=== PATIENT | female | born 1935 | race Caucasian/White ===

== ENCOUNTER 2017-04-26 15:05 | Inpatient (IN) ==
[2017-04-26] MEDS ORDERED: *HR* Warfarin 5 MG TABLET PO SCH (17:15)
[2017-04-26] MEDS ORDERED: Insulin DETEMIR 100 UNIT/ML per UNIT SQ ONE (18:00)
[2017-04-26] MEDS ORDERED: Insulin DETEMIR 100 UNIT/ML X5UNITS SQ SCH (18:00)
[2017-04-26] MEDS: Acetaminophen 325 MG TABLET PO PRN (18:12)
[2017-04-26] MEDS: hydrALAZINE 25 MG TABLET PO SCH (22:42)
[2017-04-26] MEDS: Gabapentin 300 MG CAPSULE PO SCH (22:43)
[2017-04-27 05:58] LABS: Basophils % 0.5 %; Eosinophils # 0.1 K/mcL (0.0-0.6); Eosinophils % 2.2 %; Immature Granulocytes % 0.8 % (0-4); Lymphocytes # 1.3 K/mcL (0.6-4.6); Lymphocytes % 19.5 %; Mean Corpuscular HGB Conc 33.3 g/dL (31.6-35.5); Mean Corpuscular Hemoglobin 31.3 pg (28.0-33.3); Mean Corpuscular Volume 93.8 fL (83.0-100.0); Mean Platelet Volume 11.4 fL (9.4-12.4); Monocytes # 1.9 K/mcL (0.0-1.3); Monocytes % 30.3 %; Platelet Count 193 K/mcL (140-400); Red Cell Distribution Width 15.7 % (11.5-14.5); Segmented Neutrophils % 46.7 %
[2017-04-27 06:02] LABS: INR 1.8; Prothrombin Time 19.6 Seconds (9.4-12.1)
[2017-04-27 06:03] LABS: Activated Partial Thrombo Time 35.8 Seconds (26.0-36.0)
[2017-04-27 06:09] LABS: Calcium 11.1 mg/dL (8.6-10.8); Potassium 3.8 mEq/L (3.5-4.5)
[2017-04-27] MEDS: Isosorbide MONOnitrate (24 HR) 30 MG TAB.ER.24H PO SCH (09:50)
[2017-04-27] MEDS: Cefdinir 300 MG CAPSULE PO SCH (09:50)
[2017-04-27] MEDS: Aspirin Enteric Coated 81 MG Tablet PO SCH (09:50)
[2017-04-27] MEDS: hydroCHLOROthiazide 25 MG TABLET PO SCH (09:51)
[2017-04-27] MEDS: Gabapentin 300 MG CAPSULE PO SCH ×3 (09:51→22:36)
[2017-04-27] MEDS: hydrALAZINE 25 MG TABLET PO SCH ×3 (09:52→22:36)
[2017-04-27] MEDS: amLODIPine 5 MG TABLET PO SCH (09:52)
--- NOTE | 2017-04-27 13:04 | Internal Med History&Physical ---
Date of Encounter: 04/27/17 Time of Encounter: 12:45 Assessment and Plan (1) Constipation Current visit: Yes Status: Acute Will schedule Colace for now. Qualifiers: Constipation type: unspecified constipation type Qualified Code(s): K59.00 - Constipation, unspecified (2) Physical deconditioning Current visit: Yes Status: Acute PT, OT, ST, and RT consulted; appreciate input. (3) BAN (acute kidney injury) Current visit: No Status: Acute Cr 3.11 today, will recheck BMP tomorrow morning. (4) Essential hypertension Current visit: No Status: Chronic Continue current regimen, will consider going up on either HCTZ or hydralazine. (5) UTI (urinary tract infection) Current visit: No Status: Acute Continue Omnicef for a total of 5d here. Qualifiers: Urinary tract infection type: acute cystitis Hematuria presence: without hematuria Qualified Code(s): N30.00 - Acute cystitis without hematuria (6) Normocytic anemia Current visit: Yes Status: Acute No indication for transfusion at this particular moment. Will repeat CBC/d tomorrow morning. (7) Subtherapeutic international normalized ratio (INR) Current visit: Yes Status: Acute Pharmacy consulted; appreciate rec(s) on warfarin dosing. (8) Diabetes mellitus Current visit: No Status: Resolved Sugar overall controlled, continue current regimen. Qualifiers: Diabetes mellitus type: type 2 Diabetes mellitus complication status: with unspecified complications Diabetes mellitus superintendent terminal insulin use: with detention use Qualified Code(s): E11.8 - Type 2 diabetes mellitus with unspecified complications; Z79.4 - prison (current) use of insulin Internal Medicine - H&P: HPI Chief complaint: Physical deconditioning Admitted From: Hospital to Hospital Transfer Plans for Post Hospital Care: Transfer Inp Rehab Fac History of present illness: Ms. Trevizo is a 82 year old female w/a PMH significant for CHF, CAD, a fib on Coumadin, DM, and CKD5 who has been transferred to our facility from [facility] due to physical deconditioning needing rehab. Per discharge summary, patient presented with falls + confusion and was found to be bradycardic and also a UTI. Per discharge summary, cardiac meds were adjusted based on cardiology's input (metoprolol and Lasic discontinued, HCTZ started). Per discharge summary, patient will need to complete 5 more days of Omnicef while here. Finally, per discharge summary, patient will need to f/u with nephrology in 2 weeks for BAN on CKD diagnosed during this hospitalization. At the time of this encounter, the patient feels overall okay and is looking forward to working with our therapists. Patient does report a bit of constipation. In addition, although the patient has been able to move around, she gets really short of breath easily. Finally, on the way here yesterday, the patient did feel a little bit nauseated, but did not vomit and this feeling was self-limited. Patient reports no fever, chills, CP, dysuria, seizure, tremor, skin rash, bruising out of the ordinary, or bleeding symptoms. Past Med Surg Social Fam HX - Past Medical History Medical history: arthritis, atrial fibrillation, CHF, diabetes, hyperlipidemia, hypertension, renal disease Psychiatric history: no psych history - Past Surgical History Surgical History: cholecystectomy, orthopedic, other, NICHOLAS/BSO - Social History Smoking Status: Never smoker Smokeless Tobacco Status: No Alcohol use: none Drug use: none - Family History Mother Living Status: Hx Family Cardiac Disorders: Yes Hx Family Cancer: Yes (Skin) Hx Family Endocrine Disorder: Yes (diabetes) Father Adopted: No Family Member Ethnicity: Non- Living Status: Hx Family Cardiac Disorders: Yes Hx Family Endocrine Disorder: Yes (diabetes) Internal Medicine - H&P: Meds Amlodipine Besylate 10 mg PO DAILY 01/24/16 [History] DULoxetine [Cymbalta] 30 mg PO DAILY 01/24/16 [History] Esomeprazole Magnesium [Nexium] 40 mg PO DAILY 01/24/16 [History] Gabapentin [Neurontin] 300 mg PO TID 01/24/16 [History] Hydralazine HCl 50 mg PO TID 01/24/16 [History] Insulin Glargine,Hum.rec.anlog [Lantus Solostar] 18 unit SQ QPM 01/24/16 [ History] Acetaminophen [Tylenol] 650 mg PO Q6HR PRN #0 tablet 02/01/16 [Rx] Aspirin Enteric Coated [Aspirin EC] 81 mg PO DAILY tablet. 02/01/16 [Rx] Docusate [Colace] 100 mg PO BID PRN #0 capsule 02/01/16 [Rx] Isosorbide MONOnitrate (24 HR) [Imdur] 30 mg PO DAILY 04/23/17 [History] Warfarin [Coumadin] 5 mg PO SUMOWETHFR 04/23/17 [History] Warfarin perPT [Coumadin perPT] 5.5 mg PO TUTHSA 04/23/17 [History] Cefdinir [Omnicef] 300 mg PO DAILY 5 Days #5 capsule 04/26/17 [Rx] hydroCHLOROthiazide [Hydrochlorothiazide] 25 mg PO DAILY #14 tablet 04/26/17 [Rx ] 3 Allergy/AdvReac Type Severity Reaction Status Date / Time cephalexin [From Keflex] AdvReac Unknown Hypotension Verified 01/24/16 21:49 codeine AdvReac Hypotension Verified 01/24/16 21:49 lisinopril AdvReac See Verified 01/24/16 21:49 Comments metoprolol AdvReac See Verified 01/24/16 21:49 Comments All Systems PM: A 10-system review of systems was performed and is negative for pertinent findings except as documented above in the HPI. Review of systems: 10-point ROS performed and (-) other than mentioned per HPI. - Constitutional Vitals: Temp Pulse Resp BP Pulse Ox 98.1 F 72 16 160/57 94 04/27/17 07:25 04/27/17 07:25 04/27/17 07:25 04/27/17 07:25 04/27/17 07:25 Exam: Gen: A&Ox3, NAD. HEENT: NCAT. Neck: No palpable lymphadenopathy or thyromegaly. CV: RRR, S1S2. No murmur. Pulm: CTAB. Abd: (+)BS. NDNT. Neuro: Global weakness, otherwise non-focal. Skin: No rash. Ext: No pitting edema. Internal Med - H&P Results - Labs CBC & Chem 7: 04/27/17 05:00 04/27/17 05:00 Labs: Short CBC 04/27/17 Range/Units 05:00 WBC 6.4 (4.3-11.1) K/mcL Hgb 10.0 L (11.5-15.4) g/dL Hct 30.0 L (35.3-44.9) % Plt Count 193 (140-400) K/mcL Neutrophils # 3.0 (1.6-8.9) K/mcL BMP 04/27/17 05:00 Sodium 144 Potassium 3.8 Chloride 110 H Carbon Dioxide 22 BUN 44 H Creatinine 3.11 H Glucose 81 Calcium 11.1 H
[2017-04-27] MEDS: Warfarin perPT PO SCH (17:47)
[2017-04-27] MEDS ORDERED: *HR* Warfarin 3 MG TABLET PO SCH (18:00)
[2017-04-27] MEDS ORDERED: *HR* Warfarin 2.5 MG TABLET PO SCH (18:00)
[2017-04-27] MEDS: Insulin DETEMIR 100 UNIT/ML X5UNITS SQ SCH (18:38)
[2017-04-28 05:16] LABS: Basophils % 0.4 %; Eosinophils # 0.1 K/mcL (0.0-0.6); Eosinophils % 2.3 %; Hematocrit 29.1 % (35.3-44.9); Hemoglobin 9.7 g/dL (11.5-15.4); Immature Granulocytes % 0.8 % (0-4); Lymphocytes # 1.1 K/mcL (0.6-4.6); Lymphocytes % 20.1 %; Mean Corpuscular HGB Conc 33.3 g/dL (31.6-35.5); Mean Corpuscular Hemoglobin 31.2 pg (28.0-33.3); Mean Corpuscular Volume 93.6 fL (83.0-100.0); Mean Platelet Volume 11.1 fL (9.4-12.4); Monocytes # 1.3 K/mcL (0.0-1.3); Monocytes % 25.4 %; Neutrophils # 2.7 K/mcL (1.6-8.9); Platelet Count 181 K/mcL (140-400); Red Blood Count 3.11 M/mcL (3.82-4.97); Red Cell Distribution Width 15.6 % (11.5-14.5)
[2017-04-28 05:22] LABS: INR 1.8; Prothrombin Time 19.5 Seconds (9.4-12.1)
[2017-04-28 05:31] LABS: Platelet Estimate Normal (Normal)
[2017-04-28 05:35] LABS: Albumin 2.7 g/dL (3.5-5.0); Albumin/Globulin Ratio 0.8 (1.1-2.2); Bilirubin,Total 0.4 mg/dL (0.2-1.2); Calcium 11.1 mg/dL (8.6-10.8); Globulin 3.4 g/dL (2.4-3.5); Potassium 4.2 mEq/L (3.5-4.5); Total Protein 6.1 g/dL (6.0-8.3)
[2017-04-28] MEDS: Cefdinir 300 MG CAPSULE PO SCH (08:28)
[2017-04-28] MEDS: hydrALAZINE 25 MG TABLET PO SCH ×3 (08:28→23:34)
[2017-04-28] MEDS: Isosorbide MONOnitrate (24 HR) 30 MG TAB.ER.24H PO SCH (08:28)
[2017-04-28] MEDS: Gabapentin 300 MG CAPSULE PO SCH ×3 (08:28→20:46)
[2017-04-28] MEDS: Aspirin Enteric Coated 81 MG Tablet PO SCH (08:29)
[2017-04-28] MEDS: amLODIPine 5 MG TABLET PO SCH (08:29)
[2017-04-28] MEDS: hydroCHLOROthiazide 25 MG TABLET PO SCH (08:29)
--- NOTE | 2017-04-28 12:08 | Internal Med Progress Note ---
Date of Encounter: 04/28/17 Time of Encounter: 12:05 - Assessment and plan (1) Constipation Current Visit: Yes Status: Resolved Assessment and plan: Will make Colace PRN now. Qualifiers: Constipation type: unspecified constipation type Qualified Code(s): K59.00 - Constipation, unspecified (2) Physical deconditioning Current Visit: Yes Status: Acute Assessment and plan: PT, OT, ST, and RT consulted; appreciate input. (3) BAN (acute kidney injury) Current Visit: No Status: Acute Assessment and plan: - Cr overall stabe at 3.2 today. Will recheck BMP tomorrow. - Encourage PO. (4) Essential hypertension Current Visit: No Status: Chronic Assessment and plan: - Will increase hydralazine to 50mg q6h. - Continue HCTZ and amlodipine. (5) UTI (urinary tract infection) Current Visit: No Status: Acute Assessment and plan: Continue Omnicef for a total of 5d here. Qualifiers: Urinary tract infection type: acute cystitis Hematuria presence: without hematuria Qualified Code(s): N30.00 - Acute cystitis without hematuria (6) Normocytic anemia Current Visit: Yes Status: Chronic Assessment and plan: - Stable, no indication for transfusion at this moment. - Continue to monitor as clinically indicated. (7) Subtherapeutic international normalized ratio (INR) Current Visit: Yes Status: Acute Assessment and plan: Warfarin dosing per pharmacy. (8) Diabetes mellitus Current Visit: No Status: Resolved Assessment and plan: Sugar overall well controlled; continue current insulin regimen. Qualifiers: Diabetes mellitus type: type 2 Diabetes mellitus complication status: with unspecified complications Diabetes mellitus care home insulin use: with care home use Qualified Code(s): E11.8 - Type 2 diabetes mellitus with unspecified complications; Z79.4 - longterm (current) use of insulin - Time Spent With Patient 25 - 35 minutes - Subjective Interval history: - Feeling "better." - States that hypertension has been a very chronic problem. - Had a BM. - Constitutional Vitals: Temp Pulse Resp BP Pulse Ox 97.4 F L 69 15 169/69 91 04/28/17 07:00 04/28/17 07:00 04/28/17 07:00 04/28/17 07:00 04/28/17 07:00 Exam: Gen: A&Ox3, NAD. HEENT: NCAT. Neck: No palpable lymphadenopathy or thyromegaly. CV: RRR, S1S2. No murmur. Pulm: CTAB. Abd: (+)BS. NDNT. Neuro: Global weakness, otherwise non-focal. Skin: No rash. Ext: No pitting edema. Internal Medicine: Result - Labs CBC & Chem 7: 04/28/17 05:00 04/28/17 05:00 Labs: Short CBC 04/28/17 Range/Units 05:00 WBC 5.3 (4.3-11.1) K/mcL Hgb 9.7 L (11.5-15.4) g/dL Hct 29.1 L (35.3-44.9) % Plt Count 181 (140-400) K/mcL Neutrophils # 2.7 (1.6-8.9) K/mcL BMP 04/28/17 05:00 Sodium 141 Potassium 4.2 Chloride 109 Carbon Dioxide 21 BUN 43 H Creatinine 3.20 H Glucose 116 H Calcium 11.1 H Liver Function 04/28/17 Range/Units 05:00 Total Bilirubin 0.4 (0.2-1.2) mg/dL AST 17 (5-34) Units/L ALT 27 (0-55) Units/L Alkaline Phosphatase 92 (38-126) Units/L Albumin 2.7 L (3.5-5.0) g/dL - ABG Interpretation ABG results: PT/INR, D-dimer PT 19.5 Seconds (9.4-12.1) H 04/28/17 05:00 Consult Discharge Plan - Plan Referrals: Alicia Johnson VULCANIZING PRESS OPERATOR [Primary Care Provider] -
[2017-04-28] MEDS ORDERED: *HR* Warfarin 3 MG TABLET PO ONE (18:00)
[2017-04-28] MEDS: Warfarin perPT PO SCH (18:49)
[2017-04-28] MEDS: Insulin DETEMIR 100 UNIT/ML X5UNITS SQ SCH (18:51)
[2017-04-29] MEDS: hydrALAZINE 25 MG TABLET PO SCH ×4 (05:07→22:01)
[2017-04-29 06:05] LABS: Basophils % 0.3 %; Eosinophils # 0.2 K/mcL (0.0-0.6); Eosinophils % 2.6 %; Hematocrit 28.8 % (35.3-44.9); Hemoglobin 9.6 g/dL (11.5-15.4); Lymphocytes # 1.5 K/mcL (0.6-4.6); Lymphocytes % 25.3 %; Mean Corpuscular HGB Conc 33.3 g/dL (31.6-35.5); Mean Corpuscular Hemoglobin 31.5 pg (28.0-33.3); Mean Corpuscular Volume 94.4 fL (83.0-100.0); Mean Platelet Volume 11.8 fL (9.4-12.4); Monocytes # 1.6 K/mcL (0.0-1.3); Monocytes % 26.5 %; Neutrophils # 2.6 K/mcL (1.6-8.9); Platelet Count 196 K/mcL (140-400); Red Blood Count 3.05 M/mcL (3.82-4.97); Red Cell Distribution Width 15.5 % (11.5-14.5); Segmented Neutrophils % 44.3 %
[2017-04-29 06:09] LABS: INR 1.8; Prothrombin Time 19.5 Seconds (9.4-12.1)
[2017-04-29 06:20] LABS: Calcium 11.3 mg/dL (8.6-10.8); Potassium 4.7 mEq/L (3.5-4.5)
[2017-04-29 06:34] LABS: Platelet Estimate Normal (Normal)
[2017-04-29] MEDS: Isosorbide MONOnitrate (24 HR) 30 MG TAB.ER.24H PO SCH (08:56)
[2017-04-29] MEDS: amLODIPine 5 MG TABLET PO SCH (08:56)
[2017-04-29] MEDS: hydroCHLOROthiazide 25 MG TABLET PO SCH (08:56)
[2017-04-29] MEDS: Cefdinir 300 MG CAPSULE PO SCH (08:56)
[2017-04-29] MEDS: Gabapentin 300 MG CAPSULE PO SCH ×3 (08:56→17:22)
[2017-04-29] MEDS: Aspirin Enteric Coated 81 MG Tablet PO SCH (08:56)
[2017-04-29] MEDS: Acetaminophen 325 MG TABLET PO PRN ×2 (09:15→21:54)
--- NOTE | 2017-04-29 13:51 | Internal Med Progress Note ---
Date of Encounter: 04/29/17 Time of Encounter: 13:49 - Assessment and plan (1) Hip dislocation, right Current Visit: No Status: Acute Qualifiers: Encounter type: initial encounter Qualified Code(s): S73.004A - Unspecified dislocation of right hip, initial encounter (2) Acute kidney injury superimposed on chronic kidney disease Current Visit: No Status: Acute Assessment and plan: CT of her creatinine. We will follow the renal function - Time Spent With Patient less than 15 minutes - Subjective Interval history: Asians here for deconditioning due to multiple medical problems and does working with a therapist - Constitutional Vitals: Temp Pulse Resp BP Pulse Ox 98.1 F 53 16 165/52 92 04/29/17 07:00 04/29/17 07:00 04/29/17 07:00 04/29/17 07:00 04/29/17 07:00 - Head Head exam: Present: atraumatic, normal inspection, normocephalic - Neck Neck exam general surgery: Present: supple, trachea midline. Absent: lymphadenopathy - Respiratory Respiratory exam: Present: CTAB. Absent: accessory muscle use, rales, rhonchi, wheezes - Cardiovascular Cardiovascular exam: Present: RRR, +S1, +S2. Absent: diastolic murmur, gallop, rubs, systolic murmur Internal Medicine: Result - Labs CBC & Chem 7: 04/29/17 05:25 04/29/17 05:25 Labs: Short CBC 04/29/17 Range/Units 05:25 WBC 5.9 (4.3-11.1) K/mcL Hgb 9.6 L (11.5-15.4) g/dL Hct 28.8 L (35.3-44.9) % Plt Count 196 (140-400) K/mcL Neutrophils # 2.6 (1.6-8.9) K/mcL BMP 04/29/17 05:25 Sodium 141 Potassium 4.7 H Chloride 109 Carbon Dioxide 24 BUN 49 H Creatinine 3.51 H Glucose 107 H Calcium 11.3 H She seems to have chronic renal failure and will follow her chemistry. - ABG Interpretation ABG results: PT/INR, D-dimer PT 19.5 Seconds (9.4-12.1) H 04/29/17 05:25 Consult Discharge Plan - Plan Referrals: Knisley,Alicia S, STUBBER [Primary Care Provider] -
[2017-04-29] MEDS: Insulin DETEMIR 100 UNIT/ML X5UNITS SQ SCH (17:23)
[2017-04-29] MEDS: Warfarin perPT PO SCH (17:23)
[2017-04-29] MEDS ORDERED: *HR* Warfarin 3 MG TABLET PO ONE (18:00)
[2017-04-30 06:08] LABS: INR 1.9; Prothrombin Time 21.2 Seconds (9.4-12.1)
[2017-04-30] MEDS: hydrALAZINE 25 MG TABLET PO SCH ×4 (06:55→22:10)
[2017-04-30] MEDS: Aspirin Enteric Coated 81 MG Tablet PO SCH (09:33)
[2017-04-30] MEDS: hydroCHLOROthiazide 25 MG TABLET PO SCH (09:33)
[2017-04-30] MEDS: Gabapentin 300 MG CAPSULE PO SCH ×3 (09:33→22:10)
[2017-04-30] MEDS: amLODIPine 5 MG TABLET PO SCH (09:33)
[2017-04-30] MEDS: Isosorbide MONOnitrate (24 HR) 30 MG TAB.ER.24H PO SCH (09:33)
[2017-04-30] MEDS: Cefdinir 300 MG CAPSULE PO SCH (09:33)
--- NOTE | 2017-04-30 13:33 | Internal Med Progress Note ---
Date of Encounter: 04/30/17 Time of Encounter: 13:56 - Assessment and plan (1) Hip dislocation, right Current Visit: No Status: Acute Assessment and plan: Patient is doing well with that. Qualifiers: Encounter type: initial encounter Qualified Code(s): S73.004A - Unspecified dislocation of right hip, initial encounter (2) Acute kidney injury superimposed on chronic kidney disease Current Visit: No Status: Acute Assessment and plan: Well peers to be stable although chronic in nature - Time Spent With Patient less than 15 minutes - Subjective Interval history: Patient is working with the therapist denies any problems and doing well. - Constitutional Vitals: Temp Pulse Resp BP Pulse Ox 97.5 F L 59 16 184/66 90 04/30/17 07:00 04/30/17 07:00 04/30/17 07:00 04/30/17 07:00 04/30/17 07:00 - Head Head exam: Present: atraumatic, normal inspection, normocephalic - Neck Neck exam general surgery: Present: supple, trachea midline. Absent: lymphadenopathy - Respiratory Respiratory exam: Present: CTAB. Absent: accessory muscle use, rales, rhonchi, wheezes - Cardiovascular Cardiovascular exam: Present: RRR, +S1, +S2. Absent: diastolic murmur, gallop, rubs, systolic murmur Internal Medicine: Result - Labs CBC & Chem 7: 04/29/17 05:25 04/29/17 05:25 Labs: Chronic renal failure is noted. - ABG Interpretation ABG results: PT/INR, D-dimer PT 21.2 Seconds (9.4-12.1) H 04/30/17 05:37 Consult Discharge Plan - Plan Referrals: Alicia Johnson, BROTHEL KEEPER [Primary Care Provider] -
[2017-04-30] MEDS: Warfarin perPT PO SCH (17:09)
[2017-04-30] MEDS: *HR* Warfarin 3 MG TABLET PO SCH (17:09)
[2017-04-30] MEDS: Insulin DETEMIR 100 UNIT/ML X5UNITS SQ SCH (17:57)
[2017-04-30] MEDS: Acetaminophen 325 MG TABLET PO PRN (22:10)
[2017-05-01 05:48] LABS: Prothrombin Time 21.6 Seconds (9.4-12.1)
[2017-05-01] MEDS: hydrALAZINE 25 MG TABLET PO SCH ×3 (06:38→17:57)
[2017-05-01] MEDS: amLODIPine 5 MG TABLET PO SCH (08:41)
[2017-05-01] MEDS: hydroCHLOROthiazide 25 MG TABLET PO SCH (08:41)
[2017-05-01] MEDS: Aspirin Enteric Coated 81 MG Tablet PO SCH (08:41)
[2017-05-01] MEDS: Gabapentin 300 MG CAPSULE PO SCH ×3 (08:41→21:07)
[2017-05-01] MEDS: Isosorbide MONOnitrate (24 HR) 30 MG TAB.ER.24H PO SCH (08:41)
[2017-05-01] MEDS: Cefdinir 300 MG CAPSULE PO SCH (08:41)
[2017-05-01] MEDS: Acetaminophen 325 MG TABLET PO PRN ×2 (08:52→21:09)
--- NOTE | 2017-05-01 12:29 | Physical Med Progress Note ---
Date of Encounter: 05/01/17 Time of Encounter: 12:23 Physical Medicine-PN: Subj Interval history: PMR PCC Note Patient admitted for rehab secondary to medical deconditioning. Patient is having issues with left knee pain and buckling. Patient has bruising on the left knee from her previous fall. Patient has poor balance. Patient is walking 50 to 100 feet CGA with walker. Patient has poor endurance. Patient is able to stand for 6 minutes. Patient requires education for safe use of walker. Patient is set up for ADLs. Plan to continue with intensive PT/OT/TR . We will have her fit with a left knee sleeve for comfort. Plan for discharge to home 05/07/17 with home health. - Constitutional Vitals: Vital Signs Temp Pulse Resp BP Pulse Ox 05/01/17 07:00 97.7 F 60 16 166/62 90 04/30/17 19:24 97.4 F L 62 18 193/70 94 Intake and Output 04/30/17 05/01/17 05/01/17 23:59 07:59 15:59 Intake Total 260 / 260 300 / 300 240 / 240 Balance 260 / 260 300 / 300 240 / 240 Intake: Oral 260 / 260 300 / 300 240 / 240 Other: Meal Dinner Breakfast Percent of Meal Consumed 100% 100% Stool Size Large Stool Consistency formed Stool Color Brown # Voids 1 1 1 # Bowel Movements 1 Weight 91.943 kg Blood Glucose* 113 96 151 Patient Weight 05/01/17 23:59 Weight 91.943 kg Physical Medicine-PN: Obj Data - Labs CBC & Chem 7: 04/29/17 05:25 04/29/17 05:25 Labs: Laboratory Results - last 24 hr 04/30/17 04/30/17 04/30/17 07:37 16:23 20:06 PT INR POC Glucose 104 H 127 H 113 H 05/01/17 05/01/17 05:30 07:29 PT 21.6 H INR 2.0 POC Glucose 96 H - ABG Interpretation ABG results: PT/INR, D-dimer PT 21.6 Seconds (9.4-12.1) H 05/01/17 05:30 Consult Discharge Plan - Plan Referrals: Alicia Johnson, APPLICATIONS SYSTEMS ANALYST [Primary Care Provider] -
[2017-05-01] MEDS: Warfarin perPT PO SCH (16:58)
[2017-05-01] MEDS: *HR* Warfarin 3 MG TABLET PO SCH (17:57)
[2017-05-01] MEDS: Insulin DETEMIR 100 UNIT/ML X5UNITS SQ SCH (17:57)
[2017-05-02] MEDS: hydrALAZINE 25 MG TABLET PO SCH ×4 (00:12→18:04)
[2017-05-02 05:36] LABS: INR 1.9; Prothrombin Time 20.5 Seconds (9.4-12.1)
[2017-05-02] MEDS: amLODIPine 5 MG TABLET PO SCH (09:35)
[2017-05-02] MEDS: Isosorbide MONOnitrate (24 HR) 30 MG TAB.ER.24H PO SCH (09:35)
[2017-05-02] MEDS: Aspirin Enteric Coated 81 MG Tablet PO SCH (09:35)
[2017-05-02] MEDS: hydroCHLOROthiazide 25 MG TABLET PO SCH (09:35)
[2017-05-02] MEDS: Gabapentin 300 MG CAPSULE PO SCH ×3 (09:35→22:06)
[2017-05-02] MEDS: Cefdinir 300 MG CAPSULE PO SCH (09:35)
[2017-05-02] MEDS: Warfarin perPT PO SCH (17:57)
[2017-05-02] MEDS ORDERED: *HR* Warfarin 7.5 MG TABLET PO ONE (18:00)
[2017-05-02] MEDS: Insulin DETEMIR 100 UNIT/ML X5UNITS SQ SCH (18:05)
--- NOTE | 2017-05-02 19:51 | Internal Med Progress Note ---
Date of Encounter: 05/02/17 Time of Encounter: 19:49 - Assessment and plan (1) Anemia Current Visit: No Status: Chronic Assessment and plan: she has renal disease as well as iron def anemia she is her base line followup as needed Qualifiers: Anemia type: iron deficiency Iron deficiency anemia type: chronic blood loss Qualified Code(s): D50.0 - Iron deficiency anemia secondary to blood loss (chronic) (2) CHF (congestive heart failure) Current Visit: No Status: Chronic Assessment and plan: stable at the present time she is sitting in chair but able to ambulate no change has renal failure which also could make it worse for her but stable at the present time Qualifiers: Congestive heart failure type: unspecified congestive heart failure type Congestive heart failure chronicity: chronic Qualified Code(s): I50.9 - Heart failure, unspecified (3) Diabetes mellitus Current Visit: No Status: Resolved Assessment and plan: on meds stable will follow Qualifiers: Diabetes mellitus type: type 2 Diabetes mellitus complication status: with unspecified complications Diabetes mellitus alf insulin use: with termite control servicer use Qualified Code(s): E11.8 - Type 2 diabetes mellitus with unspecified complications; Z79.4 - intermediate frame tender (current) use of insulin (4) A-fib Current Visit: No Status: Chronic Assessment and plan: stable rate on warfarin Qualifiers: Atrial fibrillation type: paroxysmal Qualified Code(s): I48.0 - Paroxysmal atrial fibrillation (5) CKD (chronic kidney disease) stage 4, GFR 15-29 ml/min Current Visit: No Status: Chronic Assessment and plan: stable and base line K level is stable . (6) Essential hypertension Current Visit: No Status: Chronic Assessment and plan: stable on multiple meds . - Subjective Interval history: seen for cross coverage first time she denies any complains feels fine has some pain in her legs and knees and feels tired otherwise no other issues Hx of ch renal disease , HTN which seem to be doing fine - Constitutional Vitals: Temp Pulse Resp BP Pulse Ox 97.4 F L 58 20 168/94 95 05/02/17 19:22 05/02/17 19:22 05/02/17 19:22 05/02/17 19:22 05/02/17 19:22 General appearance: Present: A&O X 3, pleasant, answers questions appropriately. Absent: no acute distress - Head Head exam: Present: atraumatic - Eye Eye exam: Present: EOMI, PERRL. Absent: scleral icterus, conjuntiva pink - Neck Neck exam general surgery: Present: supple. Absent: tenderness, nuchal rigidity - Respiratory Respiratory exam: Present: CTAB. Absent: chest wall tenderness, decreased breath sounds, respiratory distress, rhonchi, stridor, wheezes - Cardiovascular Cardiovascular exam: Present: irregular rhythm, +S1, +S2. Absent: JVD, systolic murmur - GI/Abdominal GI/Abdominal exam: Present: normal bowel sounds, soft. Absent: rebound, rigid, tenderness - Neurological Exam Neurological exam: Present: CN II-XII intact, oriented X3. Absent: facial droop , speech deficit Additional comments: non focal Internal Medicine: Result - Labs CBC & Chem 7: 04/29/17 05:25 04/29/17 05:25 Labs: noted - ABG Interpretation ABG results: PT/INR, D-dimer PT 20.5 Seconds (9.4-12.1) H 05/02/17 05:20 Consult Discharge Plan - Plan Referrals: Alicia Johnson, MANAGER FLORAL [Primary Care Provider] -
[2017-05-03 05:48] LABS: INR 1.9; Prothrombin Time 20.9 Seconds (9.4-12.1)
[2017-05-03] MEDS: hydroCHLOROthiazide 25 MG TABLET PO SCH (08:26)
[2017-05-03] MEDS: Cefdinir 300 MG CAPSULE PO SCH (08:26)
[2017-05-03] MEDS: Isosorbide MONOnitrate (24 HR) 30 MG TAB.ER.24H PO SCH (08:26)
[2017-05-03] MEDS: Gabapentin 300 MG CAPSULE PO SCH ×3 (08:26→21:27)
[2017-05-03] MEDS: Aspirin Enteric Coated 81 MG Tablet PO SCH (08:27)
[2017-05-03] MEDS: hydrALAZINE 25 MG TABLET PO SCH ×4 (08:27→21:27)
[2017-05-03] MEDS: amLODIPine 5 MG TABLET PO SCH (08:27)
--- NOTE | 2017-05-03 17:09 | Internal Med Progress Note ---
Date of Encounter: 05/03/17 Time of Encounter: 17:07 - Assessment and plan (1) Anemia Current Visit: No Status: Chronic Qualifiers: Anemia type: iron deficiency Iron deficiency anemia type: chronic blood loss Qualified Code(s): D50.0 - Iron deficiency anemia secondary to blood loss (chronic) (2) CHF (congestive heart failure) Current Visit: No Status: Chronic Qualifiers: Congestive heart failure type: unspecified congestive heart failure type Congestive heart failure chronicity: chronic Qualified Code(s): I50.9 - Heart failure, unspecified (3) Diabetes mellitus Current Visit: No Status: Resolved Qualifiers: Diabetes mellitus type: type 2 Diabetes mellitus complication status: with unspecified complications Diabetes mellitus terminal block assembler insulin use: with terminal block assembler use Qualified Code(s): E11.8 - Type 2 diabetes mellitus with unspecified complications; Z79.4 - custodial (current) use of insulin (4) A-fib Current Visit: No Status: Chronic Qualifiers: Atrial fibrillation type: paroxysmal Qualified Code(s): I48.0 - Paroxysmal atrial fibrillation (5) CKD (chronic kidney disease) stage 4, GFR 15-29 ml/min Current Visit: No Status: Chronic (6) Essential hypertension Current Visit: No Status: Chronic - Subjective Interval history: sdoing better today sleeping but still feels that she has pain and feels week otherwise no SOB chest pain or any other complains pain is usually all over her body especially in her legs - Constitutional Vitals: Temp Pulse Resp BP Pulse Ox 97.6 F 63 18 171/78 98 05/03/17 16:38 05/03/17 16:38 05/03/17 16:38 05/03/17 16:38 05/03/17 16:38 General appearance: Present: A&O X 3, pleasant, answers questions appropriately. Absent: no acute distress - Head Head exam: Present: atraumatic - Eye Eye exam: Present: EOMI, PERRL Pupils: Present: PERRL - Neck Neck exam general surgery: Present: supple. Absent: tenderness, nuchal rigidity - Respiratory Respiratory exam: Present: CTAB. Absent: respiratory distress, rhonchi, stridor , wheezes - Cardiovascular Cardiovascular exam: Present: irregular rhythm, +S1, +S2. Absent: JVD - GI/Abdominal GI/Abdominal exam: Present: normal bowel sounds, soft. Absent: distended, guarding, rebound, rigid - Extremities Exam Extremities exam: Absent: pedal edema, tenderness Additional comments: unable to elicit any particular area of pain in her legs - Neurological Exam Neurological exam: Present: CN II-XII intact, oriented X3, strengths equal and symetr throughout. Absent: no focal deficits, facial droop, speech deficit Internal Medicine: Result - Labs CBC & Chem 7: 04/29/17 05:25 04/29/17 05:25 - ABG Interpretation ABG results: PT/INR, D-dimer PT 20.9 Seconds (9.4-12.1) H 05/03/17 05:00 - VTE Documentation of Mechanical Device: Graduated compression elastic hosiery Consult Discharge Plan - Plan Referrals: Alicia Johnson, RETAIL INTERIOR DESIGNER [Primary Care Provider] -
[2017-05-03] MEDS: Warfarin perPT PO SCH (17:24)
[2017-05-03] MEDS: Insulin DETEMIR 100 UNIT/ML X5UNITS SQ SCH (17:30)
[2017-05-03] MEDS ORDERED: *HR* Warfarin 7.5 MG TABLET PO ONE (18:00)
[2017-05-03] MEDS ORDERED: *HR* Warfarin 3 MG TABLET PO SCH (18:00)
[2017-05-04 06:03] LABS: Prothrombin Time 22.1 Seconds (9.4-12.1)
[2017-05-04 06:13] LABS: Calcium 11.5 mg/dL (8.6-10.8); Potassium 4.5 mEq/L (3.5-4.5)
[2017-05-04] MEDS: hydrALAZINE 25 MG TABLET PO SCH ×4 (08:53→20:45)
[2017-05-04] MEDS: amLODIPine 5 MG TABLET PO SCH (08:54)
[2017-05-04] MEDS: Aspirin Enteric Coated 81 MG Tablet PO SCH (08:54)
[2017-05-04] MEDS: Acetaminophen 325 MG TABLET PO PRN ×2 (08:54→20:45)
[2017-05-04] MEDS: Gabapentin 300 MG CAPSULE PO SCH ×3 (08:54→20:45)
[2017-05-04] MEDS: Cefdinir 300 MG CAPSULE PO SCH (08:55)
[2017-05-04] MEDS: Isosorbide MONOnitrate (24 HR) 30 MG TAB.ER.24H PO SCH (08:55)
[2017-05-04] MEDS: hydroCHLOROthiazide 25 MG TABLET PO SCH (08:55)
--- NOTE | 2017-05-04 09:42 | Internal Med Progress Note ---
Date of Encounter: 05/04/17 Time of Encounter: 09:40 - Assessment and plan (1) Anemia Current Visit: No Status: Chronic Assessment and plan: base line no new change Qualifiers: Anemia type: iron deficiency Iron deficiency anemia type: chronic blood loss Qualified Code(s): D50.0 - Iron deficiency anemia secondary to blood loss (chronic) (2) CHF (congestive heart failure) Current Visit: No Status: Chronic Assessment and plan: stable Qualifiers: Congestive heart failure type: unspecified congestive heart failure type Congestive heart failure chronicity: chronic Qualified Code(s): I50.9 - Heart failure, unspecified (3) Diabetes mellitus Current Visit: No Status: Resolved Assessment and plan: stable. Continue present management Qualifiers: Diabetes mellitus type: type 2 Diabetes mellitus complication status: with unspecified complications Diabetes mellitus terminologist insulin use: with terminologist use Qualified Code(s): E11.8 - Type 2 diabetes mellitus with unspecified complications; Z79.4 - senior living (current) use of insulin (4) A-fib Current Visit: No Status: Chronic Assessment and plan: stable rate INR is s table no bleeding Qualifiers: Atrial fibrillation type: paroxysmal Qualified Code(s): I48.0 - Paroxysmal atrial fibrillation (5) CKD (chronic kidney disease) stage 4, GFR 15-29 ml/min Current Visit: No Status: Chronic Assessment and plan: renal function base line no new change (6) Essential hypertension Current Visit: No Status: Chronic Assessment and plan: BP is some what high but this is her base line . She follows with nephrology as well no new changes made - Subjective Interval history: sNo new issues still has some pain in her knee and it give up otherwise no other issues feels fine . No chest pain SOB or palpitation - Constitutional Vitals: Temp Pulse Resp BP Pulse Ox 97.9 F 60 18 175/62 93 05/04/17 06:49 05/04/17 06:49 05/04/17 06:49 05/04/17 06:49 05/04/17 06:49 General appearance: Present: A&O X 3, pleasant, answers questions appropriately. Absent: no acute distress - Head Head exam: Present: atraumatic - Eye Eye exam: Present: EOMI, PERRL. Absent: scleral icterus, conjuntiva pink Pupils: Present: PERRL - Neck Neck exam general surgery: Present: supple. Absent: tenderness, nuchal rigidity - Respiratory Respiratory exam: Present: CTAB. Absent: chest wall tenderness, rales, respiratory distress, rhonchi, stridor, wheezes, tachypnea - Cardiovascular Cardiovascular exam: Present: irregular rhythm, +S1, +S2, systolic murmur. Absent: gallop, JVD - GI/Abdominal GI/Abdominal exam: Present: normal bowel sounds, soft. Absent: firm, rebound, rigid, tenderness - Neurological Exam Neurological exam: Present: CN II-XII intact, no focal deficits, strengths equal and symetr throughout. Absent: facial droop, speech deficit Internal Medicine: Result - Labs CBC & Chem 7: 04/29/17 05:25 05/04/17 05:57 Labs: BMP 05/04/17 05:57 Sodium 142 Potassium 4.5 Chloride 107 Carbon Dioxide 23 BUN 65 H Creatinine 3.57 H Glucose 94 Calcium 11.5 H - ABG Interpretation ABG results: PT/INR, D-dimer PT 22.1 Seconds (9.4-12.1) H 05/04/17 05:57 - VTE Documentation of Mechanical Device: Graduated compression elastic hosiery Consult Discharge Plan - Plan Referrals: Alicia Johnson, PERCH MACHINE INSPECTOR [Primary Care Provider] -
[2017-05-04] MEDS: *HR* Warfarin 3 MG TABLET PO SCH (17:37)
[2017-05-04] MEDS: Warfarin perPT PO SCH (17:37)
[2017-05-04] MEDS: Insulin DETEMIR 100 UNIT/ML X5UNITS SQ SCH (17:41)
[2017-05-04 19:20] LABS: Thyroid Stimulating Hormone 1.543 mcIU/mL (0.350-4.840)
[2017-05-05 05:47] LABS: INR 2.3; Prothrombin Time 25.2 Seconds (9.4-12.1)
--- NOTE | 2017-05-05 09:56 | Internal Med Progress Note ---
Date of Encounter: 05/05/17 Time of Encounter: 09:55 - Assessment and plan (1) Anemia Current Visit: No Status: Chronic Assessment and plan: stable no new change Qualifiers: Anemia type: iron deficiency Iron deficiency anemia type: chronic blood loss Qualified Code(s): D50.0 - Iron deficiency anemia secondary to blood loss (chronic) (2) CHF (congestive heart failure) Current Visit: No Status: Chronic Assessment and plan: stable and asymptomatic at the present time no new change Qualifiers: Congestive heart failure type: unspecified congestive heart failure type Congestive heart failure chronicity: chronic Qualified Code(s): I50.9 - Heart failure, unspecified (3) Diabetes mellitus Current Visit: No Status: Resolved Assessment and plan: no new change Blood sugars are well controlled Qualifiers: Diabetes mellitus type: type 2 Diabetes mellitus complication status: with unspecified complications Diabetes mellitus correction insulin use: with brazer helper induction use Qualified Code(s): E11.8 - Type 2 diabetes mellitus with unspecified complications; 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 (4) A-fib Current Visit: No Status: Chronic Assessment and plan: rate is s table INR is s table Qualifiers: Atrial fibrillation type: paroxysmal Qualified Code(s): I48.0 - Paroxysmal atrial fibrillation (5) CKD (chronic kidney disease) stage 4, GFR 15-29 ml/min Current Visit: No Status: Chronic Assessment and plan: stable no new change (6) Essential hypertension Current Visit: No Status: Chronic Assessment and plan: slightly high but much better no new change will continue to monitor - Subjective Interval history: No new change doing fine pain is well controlled plans to go to in few days at the time of discharge - Constitutional Vitals: Temp Pulse Resp BP Pulse Ox 97.9 F 58 16 150/95 90 05/05/17 08:00 05/05/17 08:00 05/05/17 08:00 05/05/17 08:00 05/05/17 08:00 General appearance: Present: A&O X 3, pleasant, answers questions appropriately. Absent: no acute distress - Head Head exam: Present: atraumatic - Eye Eye exam: Present: EOMI, PERRL. Absent: scleral icterus, conjuntiva pink - Neck Neck exam general surgery: Absent: tenderness, nuchal rigidity, supple - Respiratory Respiratory exam: Present: CTAB. Absent: respiratory distress, rhonchi, stridor , wheezes, tachypnea - Cardiovascular Cardiovascular exam: Present: RRR, +S1, +S2, systolic murmur. Absent: JVD, tachycardia Additional comments: soft systolic murmur - GI/Abdominal GI/Abdominal exam: Present: normal bowel sounds, soft. Absent: firm, guarding, tenderness - Extremities Exam Extremities exam: Absent: pedal edema, tenderness - Neurological Exam Neurological exam: Present: CN II-XII intact, oriented X3, no focal deficits, strengths equal and symetr throughout. Absent: facial droop, speech deficit Internal Medicine: Result - Labs CBC & Chem 7: 04/29/17 05:25 05/04/17 05:57 - ABG Interpretation ABG results: PT/INR, D-dimer PT 25.2 Seconds (9.4-12.1) H 05/05/17 05:20 - VTE Documentation of Mechanical Device: Graduated compression elastic hosiery Consult Discharge Plan - Plan Referrals: Alicia Johnson, EXPRESS CLERK [Primary Care Provider] -
[2017-05-05] MEDS: amLODIPine 5 MG TABLET PO SCH (10:00)
[2017-05-05] MEDS: Cefdinir 300 MG CAPSULE PO SCH (10:00)
[2017-05-05] MEDS: hydrALAZINE 25 MG TABLET PO SCH ×4 (10:00→20:19)
[2017-05-05] MEDS: Isosorbide MONOnitrate (24 HR) 30 MG TAB.ER.24H PO SCH (10:01)
[2017-05-05] MEDS: Gabapentin 300 MG CAPSULE PO SCH ×3 (10:01→20:19)
[2017-05-05] MEDS: Aspirin Enteric Coated 81 MG Tablet PO SCH (10:01)
[2017-05-05] MEDS: hydroCHLOROthiazide 25 MG TABLET PO SCH (10:01)
[2017-05-05] MEDS: Warfarin perPT PO SCH (17:38)
[2017-05-05] MEDS: Insulin DETEMIR 100 UNIT/ML X5UNITS SQ SCH (17:43)
[2017-05-05] MEDS: *HR* Warfarin 3 MG TABLET PO SCH (17:43)
[2017-05-05] MEDS: Acetaminophen 325 MG TABLET PO PRN (20:19)
[2017-05-06 06:09] LABS: INR 2.2; Prothrombin Time 24.2 Seconds (9.4-12.1)
[2017-05-06 06:41] LABS: Basophils % 0.3 %; Eosinophils # 0.1 K/mcL (0.0-0.6); Eosinophils % 1.7 %; Hematocrit 28.3 % (35.3-44.9); Hemoglobin 9.2 g/dL (11.5-15.4); Immature Granulocytes % 0.7 % (0-4); Lymphocytes # 1.5 K/mcL (0.6-4.6); Lymphocytes % 25.3 %; Mean Corpuscular HGB Conc 32.5 g/dL (31.6-35.5); Mean Corpuscular Hemoglobin 31.3 pg (28.0-33.3); Mean Corpuscular Volume 96.3 fL (83.0-100.0); Mean Platelet Volume 11.1 fL (9.4-12.4); Monocytes # 1.6 K/mcL (0.0-1.3); Neutrophils # 2.7 K/mcL (1.6-8.9); Platelet Count 259 K/mcL (140-400); Red Blood Count 2.94 M/mcL (3.82-4.97); Red Cell Distribution Width 15.9 % (11.5-14.5)
[2017-05-06 06:55] LABS: Calcium 11.6 mg/dL (8.6-10.8); Potassium 4.7 mEq/L (3.5-4.5)
[2017-05-06] MEDS: hydrALAZINE 25 MG TABLET PO SCH ×4 (09:34→21:21)
[2017-05-06] MEDS: Isosorbide MONOnitrate (24 HR) 30 MG TAB.ER.24H PO SCH (09:34)
[2017-05-06] MEDS: Aspirin Enteric Coated 81 MG Tablet PO SCH (09:34)
[2017-05-06] MEDS: hydroCHLOROthiazide 25 MG TABLET PO SCH (09:34)
[2017-05-06] MEDS: Acetaminophen 325 MG TABLET PO PRN ×2 (09:34→21:23)
[2017-05-06] MEDS: amLODIPine 5 MG TABLET PO SCH (09:34)
[2017-05-06] MEDS: Cefdinir 300 MG CAPSULE PO SCH (09:35)
[2017-05-06] MEDS: Gabapentin 300 MG CAPSULE PO SCH ×3 (09:35→21:22)
[2017-05-06] MEDS: Warfarin perPT PO SCH (18:48)
[2017-05-06] MEDS: *HR* Warfarin 3 MG TABLET PO SCH (18:48)
[2017-05-06] MEDS: Insulin DETEMIR 100 UNIT/ML X5UNITS SQ SCH (18:48)
[2017-05-07 05:30] LABS: INR 2.1; Prothrombin Time 23.4 Seconds (9.4-12.1)
[2017-05-07] MEDS: amLODIPine 5 MG TABLET PO SCH (08:57)
[2017-05-07] MEDS: hydrALAZINE 25 MG TABLET PO SCH ×2 (08:57→14:32)
[2017-05-07] MEDS: Cefdinir 300 MG CAPSULE PO SCH (08:57)
[2017-05-07] MEDS: hydroCHLOROthiazide 25 MG TABLET PO SCH (08:57)
[2017-05-07] MEDS: Aspirin Enteric Coated 81 MG Tablet PO SCH (08:57)
[2017-05-07] MEDS: Acetaminophen 325 MG TABLET PO PRN (08:58)
[2017-05-07] MEDS: Isosorbide MONOnitrate (24 HR) 30 MG TAB.ER.24H PO SCH (08:58)
[2017-05-07] MEDS: Gabapentin 300 MG CAPSULE PO SCH ×2 (08:58→14:32)
[2017-05-07 11:35] VITALS: BP 185/66
--- NOTE | 2017-05-07 11:43 | Discharge Summary ---
Date of Encounter: 05/07/17 Time of Encounter: 11:41 - Discharge Diagnosis (1) Hip dislocation, right Priority: Primary Status: Acute Qualifiers: Encounter type: initial encounter Qualified Code(s): S73.004A - Unspecified dislocation of right hip, initial encounter (2) Acute kidney injury superimposed on chronic kidney disease Priority: Secondary Status: Acute - Discharge Medications Home Medications: Amlodipine Besylate 10 mg PO DAILY 01/24/16 [History] DULoxetine [Cymbalta] 30 mg PO DAILY 01/24/16 [History] Esomeprazole Magnesium [Nexium] 40 mg PO DAILY 01/24/16 [History] Gabapentin [Neurontin] 300 mg PO TID 01/24/16 [History] Hydralazine HCl 50 mg PO TID 01/24/16 [History] Insulin Glargine,Hum.rec.anlog [Lantus Solostar] 18 unit SQ QPM 01/24/16 [ History] Acetaminophen [Tylenol] 650 mg PO Q6HR PRN #0 tablet 02/01/16 [Rx] Aspirin Enteric Coated [Aspirin EC] 81 mg PO DAILY tablet. 02/01/16 [Rx] Docusate [Colace] 100 mg PO BID PRN #0 capsule 02/01/16 [Rx] Isosorbide MONOnitrate (24 HR) [Imdur] 30 mg PO DAILY 04/23/17 [History] Warfarin [Coumadin] 5 mg PO SUMOWETHFR 04/23/17 [History] Warfarin perPT [Coumadin perPT] 5.5 mg PO TUTHSA 04/23/17 [History] Cefdinir [Omnicef] 300 mg PO DAILY 5 Days #5 capsule 04/26/17 [Rx] hydroCHLOROthiazide [Hydrochlorothiazide] 25 mg PO DAILY #14 tablet 04/26/17 [Rx ] Allergies/Adverse Reactions: 3 Allergy/AdvReac Type Severity Reaction Status Date / Time cephalexin [From Keflex] AdvReac Unknown Hypotension Verified 01/24/16 21:49 codeine AdvReac Hypotension Verified 01/24/16 21:49 lisinopril AdvReac See Verified 01/24/16 21:49 Comments metoprolol AdvReac See Verified 01/24/16 21:49 Comments Date of admission: 04/26/17 16:28 Primary care physician: Alicia Johnson Consults: 04/26/17 17:17 Consult to Occupational Therapy [CONS] Routine Comment: Evaluate, develop and implement POC Reason for Consult: eval and treat Consult to Physical Therapy [CONS] Routine Comment: Evaluate, develop and implement POC Reason for Consult: eval and treat Consult to Recreational Therapy [CONS] Routine Comment: Evaluate, develop and implement POC Consult to Stove Mounter [CONS] Routine Reason for SW Consult: for discharge planning 04/26/17 17:51 Consult to Nutrition [CONS] Routine Comment: Consulting Provider: NUTRITION Reason for Dietary Consult: MST Score 04/27/17 14:15 Consult for Pharmacy Education [CONS] Routine Reason for Consult: Warfarin dosing. Time Notified: 14:25 Call Completed: No Discharging clinician: Genaro Da Silva Anticipated date of discharge: 05/07/17 - Patient Status Disposition: Transfer SNF Condition: Fair Functional capacity at discharge: uses cane/walker Overall status at discharge: patient is not back to baseline - Discharge Instructions Follow Up With: Alicia Johnson, HOT POND OPERATOR [Primary Care Provider] - - Diet and Activity Activity: ambulate only with your walker Interval History: Patient had to have hip surgery and was deconditioned. Family decided for ECF discharged so she is little stronger. Hospital course: Ms. Trevizo is a 82 year old female She is improved with the family's desire on before meals - Time Spent with Patient Total time spent providing and/or coordinating discharge services: Less than 30 minutes - Constitutional Vitals: Temp Pulse Resp BP Pulse Ox 97.3 F L 57 16 185/66 95 05/07/17 11:34 05/07/17 11:34 05/07/17 11:34 05/07/17 11:34 05/07/17 11:34 General appearance: Present: A&O X 3, pleasant, answers questions appropriately. Absent: no acute distress - Head Head exam: Present: atraumatic, normal inspection, normocephalic - Neck Neck exam general surgery: Present: supple, trachea midline. Absent: lymphadenopathy - Respiratory Respiratory exam: Present: CTAB. Absent: accessory muscle use, rales, rhonchi, wheezes - Cardiovascular Cardiovascular exam: Present: RRR, +S1, +S2. Absent: diastolic murmur, gallop, rubs, systolic murmur - GI/Abdominal GI/Abdominal exam: Present: normal bowel sounds, soft, no peritoneal signs. Absent: distended, tenderness - VTE Documentation of Mechanical Device: Graduated compression elastic hosiery
--- NOTE | 2017-05-07 11:46 | Physician Discharge Referral ---
ExtendedCare Referral Info Transfer To: F Provider in Charge after Transfer: PCP Institutional Level of Care: Skilled - Diagnosis (1) Hip dislocation, right Priority: Primary Status: Acute (2) Acute kidney injury superimposed on chronic kidney disease Priority: Secondary Status: Acute - Transfer Medications Home Medications: Amlodipine Besylate 10 mg PO DAILY 01/24/16 [History] DULoxetine [Cymbalta] 30 mg PO DAILY 01/24/16 [History] Esomeprazole Magnesium [Nexium] 40 mg PO DAILY 01/24/16 [History] Gabapentin [Neurontin] 300 mg PO TID 01/24/16 [History] Hydralazine HCl 50 mg PO TID 01/24/16 [History] Insulin Glargine,Hum.rec.anlog [Lantus Solostar] 18 unit SQ QPM 01/24/16 [ History] Acetaminophen [Tylenol] 650 mg PO Q6HR PRN #0 tablet 02/01/16 [Rx] Aspirin Enteric Coated [Aspirin EC] 81 mg PO DAILY tablet. 02/01/16 [Rx] Docusate [Colace] 100 mg PO BID PRN #0 capsule 02/01/16 [Rx] Isosorbide MONOnitrate (24 HR) [Imdur] 30 mg PO DAILY 04/23/17 [History] Warfarin [Coumadin] 5 mg PO SUMOWETHFR 04/23/17 [History] Warfarin perPT [Coumadin perPT] 5.5 mg PO TUTHSA 04/23/17 [History] Cefdinir [Omnicef] 300 mg PO DAILY 5 Days #5 capsule 04/26/17 [Rx] hydroCHLOROthiazide [Hydrochlorothiazide] 25 mg PO DAILY #14 tablet 04/26/17 [Rx ] Allergies/Adverse Reactions: 3 Allergy/AdvReac Type Severity Reaction Status Date / Time cephalexin [From Keflex] AdvReac Unknown Hypotension Verified 01/24/16 21:49 codeine AdvReac Hypotension Verified 01/24/16 21:49 lisinopril AdvReac See Verified 01/24/16 21:49 Comments metoprolol AdvReac See Verified 01/24/16 21:49 Comments - Respiratory Orders Smoking Cessation: Smoking cessation has been advised. For more information, call the [place] Tobacco Quit Line at 8-051-ORUO-NOW. - Lab Orders Lab Orders: 2 Step Mantoux Test per State regulation - Ancillary Orders May use pressure relief devices daily prn - Advance Directives Living Will: No Power of Janitorial Tech: No Code Status: Full Code - Mobility Orders Ambulate - Rehabiliation Orders Rehab Potential: Fair Rehab Orders: Evaluation for Physical Therapy - Treatments Skin tear care topically daily PRN per policy - Diet Orders No Concentrated Sweets CERTIFICATION: I certify that the transfer of the above named patient to an Extended Care Facility is necessary for the continuing treatment of the diagnosis listed. The above information is true and accurate reflection of patient's current condition. Confidential - Redisclosure prohibited without a patient's written consent.
[2017-05-07] MEDS ORDERED: *HR* Warfarin 7.5 MG TABLET PO ONE (18:00)
[2017-05-08] MEDS ORDERED: *HR* Warfarin 3 MG TABLET PO SCH (18:00)
== END 2017-05-07 16:30 | DRG 945 ==
LOC: INPGRE 16:28
PROVIDERS: ADMIT Internal Medicine; ATTEND Internal Medicine